=== PATIENT | female | born 1940 | race Caucasian/White ===

== ENCOUNTER 2016-12-08 09:17 | Outpatient (CLI) | payer MEDICARE ==
[2016-12-08 11:01] LABS: ALT (SGPT) 10 U/L (0-55); AST (SGOT) 13 U/L (5-34); Alkaline Phosphatase 99 U/L (40-150); Anion Gap 12 mmol/L (10-20); BUN (Urea Nitrogen) 23 mg/dL (9.8-20.1); Bilirubin, Total 1.3 mg/dL (0.2-1.2); Calc. Creatinine Clearance 0 mL/min (70-130); Carbon Dioxide 24 mmol/L (23-31); Chloride 108 mmol/L (98-107); Estimated GFR-MDRD 66; Globulin 3.1 g/dL (2.4-3.5); Magnesium 2.1 mg/dL (1.6-2.6)
== END 2016-12-08 09:18 | disposition home or self-care (01) ==
LOC: BURLAB 09:17
PROVIDERS: ATTEND Internal Medicine Cardiovascular Disease
DX: I10 Essential (primary) hypertension (principal)
CPT/HCPCS: 36415; 80053; 83735; 84443

== ENCOUNTER 2018-11-07 10:09 | Outpatient (CLI) | payer MEDICARE ==
--- NOTE | 2018-11-07 20:28 | CT ---
HIGH RESOLUTION CT OF THE CHEST 11/07/18 Computed tomography of the chest is done without IV contrast using a high resolution protocol. 1.25 m m slices were obtained approximately every centimeter through the chest. Scanning was done with the p atient both supine and prone. There is a small area of opacity in the lingula of the left upper lobe. This has the appearance of at electasis or scarring more so than an acute infiltrate. The lung parenchyma otherwise was fairly unre markable. A little bit of dependent atelectasis was seen in the right lower lobe posteriorly. There w as not any suggestion of excessive fibrosis in the lungs. No masses of concern were seen. No effusion s were present. Though not optimal to evaluate the mediastinum, there is certainly no large mediastinal mass or adeno clement. The patient has fewer arterial calcifications than normal for age. There are a few in the LAD, however. The scans that went into the upper abdomen suggested a somewhat bulbous appearance to the r ight adrenal gland, but it was not fully evaluated as it was on the last slice. IMPRESSION: 1. Minor area of opacity in the left upper lobe, predominantly lingular portion. Atelectasis or scarring seems most likely. No evidence of simple process causing it. 2. No fibrotic changes or other primary parenchymal disease. 3. Faint calcifications in the patient's LAD. POS: HOME
== END 2018-11-07 10:10 | disposition home or self-care (01) ==
LOC: BURCT 10:09
PROVIDERS: ATTEND Internal Medicine
DX: J98.11 Atelectasis (principal); I70.90 Unspecified atherosclerosis; R91.8 Other nonspecific abnormal finding of lung field
CPT/HCPCS: 71250